=== PATIENT | male | born 1960 | race Two or more races ===

== ENCOUNTER 2024-06-13 20:37 | Inpatient (IN) | payer OTHER ==
[~2024-06-13] VITALS: Ht 180.3 cm; Wt 87.5 kg
[2024-06-13] MEDS ORDERED: CEFTRIAXONE SODIUM 1,000 MG VIAL IV ONE (20:45)
[2024-06-13] MEDS ORDERED: LevETIRAcetam 500 MG/5 ML VIAL IV ONE (20:45)
[2024-06-13] MEDS ORDERED: LORazepam 2 MG/ML VIAL IV PUSH ONE (20:45)
[2024-06-13] MEDS ORDERED: PROPOFOL 10,000 MCG/ML VIAL IV PUSH ONE (20:45)
[2024-06-13] MEDS ORDERED: DIPHENHYDRAMINE HCL 50 MG/ML VIAL 1ML IV ONE (20:45)
[2024-06-13 21:14] LABS: HEMATOCRIT 40.7 % (39.0-48.0); HEMOGLOBIN 13.7 g/dL (13-16.00); MEAN CELL VOLUME 97.6 fL (80.0-100.00); MEAN CORPUSCULAR HEMOGLOBIN 32.9 pg (27.00-32.0); MEAN CORPUSCULAR HGB CONC 33.7 g/dl (32.0-36.0); PLATELET COUNT 166 K/uL (150-450); RED BLOOD COUNT 4.18 M/uL (4.00-6.00); RED CELL DISTRIBUTION WIDTH 14.6 % (11.5-14.5)
[2024-06-13 21:16] LABS: ERYTHROCYTE SEDIMENTATION RATE 22 mm/hr
[2024-06-13 21:32] LABS: INR 1.01; PARTIAL THROMBOPLASTIN TIME 29.3 SECONDS (22.0-34.0)
[2024-06-13 21:39] LABS: ALBUMIN 3.7 gm/dL (3.4-5.0); ALKALINE PHOSPHATASE 109 U/L (50-136); ALT/SGPT 55 U/L (12-78); AMYLASE 77 U/L (25-115); ANION GAP 12 (10.0-20.0); AST/SGOT 47 U/L (15-37); BILIRUBIN TOTAL 0.29 mg/dL (0.3-1.2); BILIRUBIN,CONJUGATED 0.11 mg/dL (0.0-0.2); BILIRUBIN,UNCONJUGATED 0.18 mg/dL (0.0-0.6); BLOOD UREA NITROGEN 13 mg/dL (7-18); BUN CREA RATIO 12 (7.0-25.0); CALCIUM 8.6 mg/dL (8.5-10.1); CARBON DIOXIDE 26 mEq/L (21-32); CHLORIDE 107 mmol/L (98-107); CREATININE SERUM 1.13 mg/dL (0.70-1.30); GFR 63.43; GLOBULINA 3.9 G/DL (2.4-3.5); LDH 207 U/L (87-241); LIPASE 30 U/L (13-75); PHOSPHOKINASE CREATININE 141 U/L (39-308); SODIUM 141 mmol/L (136-145); TOTAL PROTEIN 7.6 gm/dL (6.4-8.2)
[2024-06-13 21:49] LABS: C-REACTIVE PROTEIN < 0.29 MG/DL (0.00-0.29); GLUCOSE FASTING 201 mg/dL (65-100); OSMOLALITY SERUM 287 MOSM/KG (275-295)
--- NOTE | 2024-06-13 22:09 | NUR ---
0820PM: SE RECIBE PTE EN AMBULANCIA EL CUAL SE OBSERVA LETARGICO CON MOVIMIENTOS INVOLUNTARIOS Y GASPIN EN COMPANIA DE PARAMEDICOS LOS CUALES REFIEREN QUE EL MISMO ESTUVO CONVULSANDO. SE PASA A CAMA #3 DE CRITICO ER Y SE CONECTA A MONITOR CARDIACO Y OXIMETRIA DE PULSO. PACIENTE CANALIZACON EN BRAZO ALLISON #18 POR DONDE BAJA .9 NSS POR PARAMEDICOS. 0823PM: DR HASSAN ES NOTIFICADO Y SE COMIENZA PROCESO DE INTUVACION EL MISMO REFIERE COLOCAR ATIVAN 2 MG IVPUSH, SE COLOCA EL MISMO POR VENA. PERSONAL DE TERAPIA RESPIRATORIA HACE PRESENCIA EN EL AREA Y EJECUTA SUCION Y PROCESO DE RESUCITACION MANUAL SE OBSERVA PACIENTE CON SATURACION 92% MAS CON RESPIRACIONES ABDOMINALES. DRA REHMAN HACE PRESENCIA EN EL AREA Y SE LLAMA A PERSONAL DE ANESTECIA. 0828PM: SE INTENTA EL PROCESO DE INTUBACION POR DR HASSAN PTE SE TORNA RESISTENTE Y COMIENZA A HACER FUERZA EN EL PROCESO. DR HASSAN REFIERE PROPOFOL. 0830PM: SE COLOCA PROPOFOL 1ML IVPUSH [facility]. 0831PM: DR REHMAN INTUBA PTE CON TUBO VICKI 7, SE VALIDA QUE TUBO WHITLEY EN POSICION SE COLOCA VENTILADOR MECANICO CON PARAMETROS EN AC 500, PEEP 5, 02 100% , RATE 14. 0846PM: SE COLECTAN MUESTRAS DE CHARLIE Y SE ENVIAN DE FORMA INMEDIATA A LAB. SE ADMINISTRAN MEDICAMENTOS [place] [facility]ICA Y SE DENIS PTE EN CAMA CON RESTRICCIONES X4, VITALES ESTABLES AL MOMENTO. PERSONAL DE PLACAS REALIZA LA MISMA. QUEDA PENDIENTE CT POR ORDEN MEDICA. 0856: SE COLOCA PURVIS A PACIENTE Y SE LIZETH PERTENENCIAS DEL MISMO EN GABETA A LADO DE LA CAMA, SE REALIZA DOCUMENTO DESGLOSADO DE PERTENENCIAS Y SE DENIS EN RECORD. SE DENIS PTE BAJO TX EN CAMA.
[2024-06-13 22:35] LABS: ABG PH 7.351 (7.35-7.45); ABG PO2 404.7 mmHg (80-100)
[2024-06-13 22:36] LABS: ABG pCO2 49.2 mmHg (35-45); BASE EXCESS 0.3 mmol/l; BICARBONATE 26.6 mmol/l (23-25); Tco2 28.1 mmol/l; allen test SATISFACTORY; o2 100 %; puncture site RADIAL LEFT
--- NOTE | 2024-06-13 23:12 | NUR ---
2312 SE RECIBE PTE ALERTA Y ORIENTADO X3 EN CAMA #3 UNIDAD DE CRITICO CON BARANDAS ELEVADAS Y FRENOS POR SEGURIDAD. SE OBSERVA PTE CONECTADO A MONITOR CARDIACO Y OXIMETRIA DE PULSO CONTINUA PRESENTANDO LOS SIGUIENTES SIGNOS VITALES: BP-83/64 (71), HR-88, T-97.5, RR-18, SPO2-100%. SE OBSERVA TAMBIEN PTE ASISTIDO POR VENTILADOR MECANICO CON INTUBACION #7 FIJADA EN NUMERACION #24 EN COMISURA LABIAL DERECHA; BAJO LOS SIGUIENTES PARAMETROS: VT ML-550, FO2%-50%, MODE A/C, PEEP-5, RR-14/MIN, LOS CUALES PTE TOLERA. PTE CANALIZADO EN AMBOS BRAZOS CON ANGIOS #18, LOS CUALES ESTAN PATENTES, LIBRES DE EDEMA Y ERITEMA, RECIBIENDO KEPPRA 1,000MG/250ML A 125MLS/HR. SE OBSERVA TAMBIEN RESTRICCIONES X4 BAJO ORDEN MEDICA YA QUE PTE SE ENCUENTRA EN ESTADO COMBATIVO, COBY DE RESTRICCION SIN ENROJECIMIENTO, LACERACIONES U OTROS HALLAZGOS ANORMALES, ABDOMEN BLANDO Y DEPRESIBLE AL TACTO, CON PURVIS CATHETER BAJANDO A GRAVEDAD CON EGRESO URINARIO COLOR AMARILLO JACKI Y SIN SEDIMENTO, EXTREMIDADES INFERIORES RESTRINGIDAS Y SIN PRESENTAR ENROJECIMIENTO, EDEMA Y OTROS SIGNOS. SE MANTIENE BAJO OBSERVACION POR CAMBIOS SIGNIFICATIVOS. PENDIENTE CT SCAN DE ANTOINE Y PECHO.
[2024-06-13] MEDS ORDERED: NOREPINEPHRINE BITARTRATE 8 MG in DEXTROSE 5 % IN WATER 250 ML IV SCH (23:30)
[2024-06-13] MEDS ORDERED: LevETIRAcetam 500 MG/5 ML VIAL IV SCH (23:40)
[2024-06-14] VITALS (16 sets, daily range): BP systolic 95–106; BP diastolic 71–84; O2SAT 97–100
--- NOTE | 2024-06-14 00:05 | NUR ---
SE TRANSPORTA PTE A CT SCAN PARA REALIZARSE LOS MISMOS.
[2024-06-14] MEDS ORDERED: LORazepam 2 MG/ML VIAL IV STA (00:37)
[2024-06-14] MEDS ORDERED: CEFTRIAXONE SODIUM 1,000 MG VIAL IV ONE (02:45)
[2024-06-14] MEDS ORDERED: MIDAZOLAM HCL 100 MG in 0.9 % SODIUM CHLORIDE 100 ML IV SCH (02:45)
[2024-06-14] MEDS ORDERED: MIDAZOLAM HCL 50 MG in 0.9 % SODIUM CHLORIDE 50 ML IV SCH (02:45)
[2024-06-14 06:09] LABS: ABG PH 7.275 (7.35-7.45); ABG PO2 157.7 mmHg (80-100); ABG pCO2 55.5 mmHg (35-45); BASE EXCESS -2.6 mmol/l; BICARBONATE 25.2 mmol/l (23-25); SaO2 99.1 %; Tco2 26.9 mmol/l; allen test SATISFACTORY; o2 50 %; puncture site RADIAL RIGHT
--- NOTE | 2024-06-14 07:37 | NUR ---
SE RECIBE PTE ALERTA Y ORIENTADO X3 EN CAMA BAJA Y BARANDAS ELEVADAS POR HARLEY SEGURIDAD EN UNIDAD DE ICU-2. PTE SE OBSERVA RECIBIENDO ASISTENCIAS RESPIRATORIA POR VENTILADOR MECANICO CON PARAMETROS VTML(550), FO2(50), MODO(AC), PEEP CMH20(5), RR(14/MIN), PTE ENTUBADO. SE OBSERVAN EXTREMIDADES SUPERIOIRES LIBRES DE EDEMA Y ERITEMA CON H/L EN AMBOS BRAZOS POR LOS CUALES ESTA RECIBIENDO DRIP DE VERSED @ 8ML/HR Y DRIP DE LEVOPHED @ 32ML/HR. PTE CONECTADO A MONITOR CARDIACO Y OXYMETRIA DE PULSO CON VITALES ESTABLES [place] CONDICION PERMITE. EL ABDOMEN SE OBSERVA RETRAIBLE AL TACTO CON PERISTALSIS PRESENTE. SE OBSERVA SONDA URINARIA CON ORINA RECOLECTADA AMARILLO INTENSO. LAS EXTREMIDADES INFERIOIRES SE OBSERVAN LIBRES DE EDEMA Y ERITEMA.
[2024-06-14] MEDS ORDERED: AZITHROMYCIN 500 MG in DEXTROSE 5 % IN WATER 250 ML IV SCH (09:00)
[2024-06-14] MEDS ORDERED: CEFTRIAXONE SODIUM 2,000 MG VIAL IV SCH (09:00)
[2024-06-14] MEDS ORDERED: RINGERS SOLUTION,LACTATED 1,000 ML IV STA (09:10)
[2024-06-14] MEDS ORDERED: PANTOPRAZOLE SODIUM 40 MG/VIAL VIAL IV SCH (09:11)
[2024-06-14] MEDS ORDERED: ENOXAPARIN SODIUM 40 MG/0.4 ML SYRINGE SUBCUTANEO SCH (09:11)
[2024-06-14] MEDS ORDERED: RINGERS SOLUTION,LACTATED 1,000 ML IV SCH (09:15)
[2024-06-14 10:31] LABS: URINE APPEARANCE Clear; URINE BILIRRUBIN Negative (NEGATIVE); URINE BLOOD Negative; URINE COLOR Yellow; URINE GLUCOSE Negative (NEGATIVE); URINE KETONE Negative (NEGATIVE); URINE LEUKOCYTE Negative; URINE NITRATE Negative; URINE PROTEIN Trace (NEGATIVE); URINE UROBILINOGEN 0.2 E.U./dl
[2024-06-14 10:35] LABS: URINE BACTERIA 62.9 uL (0.0-1933); URINE CAST 4.12 uL (0.0-1.40); URINE EPITHELIAL CELLS 8.1 uL (0.0-38.8); URINE RBC 15.4 uL (0.0-20.8); URINE WBC 9.5 uL (0.0-23.2)
[2024-06-14 11:33] LABS: HEMATOCRIT 39.1 % (39.0-48.0); MEAN CELL VOLUME 97.2 fL (80.0-100.00); MEAN CORPUSCULAR HEMOGLOBIN 32.4 pg (27.00-32.0); MEAN CORPUSCULAR HGB CONC 33.3 g/dl (32.0-36.0); RED BLOOD COUNT 4.02 M/uL (4.00-6.00); RED CELL DISTRIBUTION WIDTH 13.9 % (11.5-14.5)
[2024-06-14 11:49] LABS: ALBUMIN 3.2 gm/dL (3.4-5.0); BILIRUBIN TOTAL 0.94 mg/dL (0.3-1.2); CALCIUM 8.2 mg/dL (8.5-10.1); CREATININE SERUM 0.94 mg/dL (0.70-1.30); GFR 78.45; GLOBULINA 3.5 G/DL (2.4-3.5); MAGNESIUM 1.7 mg/dL (1.8-2.4); PHOSPHOROUS 2.2 mg/dL (2.5-4.9); POTASSIUM 4.06 mEq/L (3.5-5.1); TOTAL PROTEIN 6.7 gm/dL (6.4-8.2)
[2024-06-14 11:57] LABS: C-REACTIVE PROTEIN 2.02 MG/DL (0.00-0.29); PLATELET COUNT 91 K/uL (150-450)
[2024-06-14] MEDS ORDERED: MAGNESIUM SULFATE IN WATER 50 ML IV NR (12:30)
[2024-06-14] MEDS ORDERED: POTASSIUM PHOS,M-BASIC-D-BASIC 15 MM in 0.9 % SODIUM CHLORIDE 250 ML IV NR (12:30)
[2024-06-14 21:07] LABS: CHOL HDL RATIO 2.5 (0-5.0)
[2024-06-15] VITALS (17 sets, daily range): BP systolic 85–114; BP diastolic 4–77; O2SAT 98–100
[2024-06-15 07:55] LABS: HEMATOCRIT 40.1 % (39.0-48.0); HEMOGLOBIN 13.9 g/dL (13-16.00); MEAN CELL VOLUME 94.7 fL (80.0-100.00); MEAN CORPUSCULAR HEMOGLOBIN 32.8 pg (27.00-32.0); MEAN CORPUSCULAR HGB CONC 34.6 g/dl (32.0-36.0); PLATELET COUNT 141 K/uL (150-450); RED BLOOD COUNT 4.23 M/uL (4.00-6.00); RED CELL DISTRIBUTION WIDTH 14.2 % (11.5-14.5)
[2024-06-15 08:23] LABS: ALBUMIN 2.9 gm/dL (3.4-5.0); BILIRUBIN TOTAL 0.93 mg/dL (0.3-1.2); CALCIUM 8.1 mg/dL (8.5-10.1); CREATININE SERUM 0.76 mg/dL (0.70-1.30); GFR 100.26; GLOBULINA 3.1 G/DL (2.4-3.5); MAGNESIUM 2.1 mg/dL (1.8-2.4); PHOSPHOROUS 2.2 mg/dL (2.5-4.9); POTASSIUM 4.15 mEq/L (3.5-5.1)
[2024-06-15] MEDS ORDERED: POTASSIUM PHOS,M-BASIC-D-BASIC 15 MM in 0.9 % SODIUM CHLORIDE 250 ML IV NR (09:30)
[2024-06-15 10:05] LABS: ABG PH 7.452 (7.35-7.45); ABG PO2 297.1 mmHg (80-100); ABG pCO2 42.6 mmHg (35-45); BASE EXCESS 4.6 mmol/l; BICARBONATE 29.1 mmol/l (23-25); SaO2 99.9 %; Tco2 30.4 mmol/l
[2024-06-15 10:06] LABS: allen test SATISFACTORY; o2 50 %; puncture site RADIAL RIGHT
[2024-06-15 14:00] LABS: ABG PH 7.454 (7.35-7.45); ABG PO2 169.1 mmHg (80-100); ABG pCO2 39.8 mmHg (35-45); BASE EXCESS 3.2 mmol/l; BICARBONATE 27.3 mmol/l (23-25); SaO2 99.6 %; Tco2 28.5 mmol/l
[2024-06-15 14:01] LABS: allen test SATISFACTORY; o2 50 %; puncture site RADIAL LEFT
[2024-06-15] MEDS ORDERED: AA 4.25%/CAL/LYTES/DEXT 5% 1,000 ML PERIFERAL SCH (17:00)
[2024-06-15] MEDS ORDERED: HYDROCORTISONE SODIUM SUCC/PF 100 MG VIAL IV SCH (19:44)
[2024-06-16] VITALS (16 sets, daily range): BP systolic 78–112; BP diastolic 61–87; O2SAT 96–100
[2024-06-16 06:40] LABS: HEMATOCRIT 35.3 % (39.0-48.0); HEMOGLOBIN 12.4 g/dL (13-16.00); MEAN CELL VOLUME 95.1 fL (80.0-100.00); MEAN CORPUSCULAR HEMOGLOBIN 33.3 pg (27.00-32.0); MEAN CORPUSCULAR HGB CONC 35.1 g/dl (32.0-36.0); RED BLOOD COUNT 3.71 M/uL (4.00-6.00); RED CELL DISTRIBUTION WIDTH 14.1 % (11.5-14.5)
[2024-06-16 06:47] LABS: PLATELET COUNT 81 K/uL (150-450)
[2024-06-16 06:48] LABS: PLT IN CITRATE 75 K/uL (150-450)
[2024-06-16 07:10] LABS: INR 1.05; PARTIAL THROMBOPLASTIN TIME 31.8 SECONDS (22.0-34.0); PROTHROMBIN TIME 11.4 SECONDS (9.0-11.5)
[2024-06-16 07:17] LABS: ALBUMIN 2.5 gm/dL (3.4-5.0); BILIRUBIN TOTAL 0.8 mg/dL (0.3-1.2); BILIRUBIN,CONJUGATED 0.32 mg/dL (0.0-0.2); BILIRUBIN,UNCONJUGATED 0.48 mg/dL (0.0-0.6); CALCIUM 8.2 mg/dL (8.5-10.1); CREATININE SERUM 0.57 mg/dL (0.70-1.30); GFR 139.73; GLOBULINA 3.1 G/DL (2.4-3.5); MAGNESIUM 1.9 mg/dL (1.8-2.4); PHOSPHOROUS 2.2 mg/dL (2.5-4.9); POTASSIUM 4.08 mEq/L (3.5-5.1); TOTAL PROTEIN 5.6 gm/dL (6.4-8.2)
[2024-06-16 07:22] LABS: CHOL HDL RATIO 2.8 (0-5.0)
[2024-06-16 10:14] LABS: UREA CLEARANCE 130.3 ML/MIN
[2024-06-16] MEDS ORDERED: POTASSIUM PHOS,M-BASIC-D-BASIC 15 MM in 0.9 % SODIUM CHLORIDE 250 ML IV NR (11:15)
[2024-06-16] MEDS ORDERED: HYDROCORTISONE SODIUM SUCC/PF 100 MG VIAL IV SCH (13:00)
[2024-06-16] MEDS ORDERED: AA 4.25%/CAL/LYTES/DEXT 5% 1,000 ML PERIFERAL SCH (17:00)
[2024-06-16] MEDS ORDERED: LevETIRAcetam 5 MG/1 ML REDILUIDO IV SCH (21:00)
[2024-06-17] VITALS (13 sets, daily range): BP systolic 78–178; BP diastolic 59–86; O2SAT 95–100
[2024-06-17 06:13] LABS: HEMATOCRIT 36.9 % (39.0-48.0); HEMOGLOBIN 12.6 g/dL (13-16.00); MEAN CELL VOLUME 96.2 fL (80.0-100.00); MEAN CORPUSCULAR HEMOGLOBIN 32.8 pg (27.00-32.0); MEAN CORPUSCULAR HGB CONC 34.1 g/dl (32.0-36.0); RED BLOOD COUNT 3.83 M/uL (4.00-6.00); RED CELL DISTRIBUTION WIDTH 13.7 % (11.5-14.5)
[2024-06-17 07:03] LABS: PLATELET COUNT 92 K/uL (150-450)
[2024-06-17 07:20] LABS: ALBUMIN 2.4 gm/dL (3.4-5.0); BILIRUBIN TOTAL 0.35 mg/dL (0.3-1.2); CALCIUM 8.3 mg/dL (8.5-10.1); CREATININE SERUM 0.68 mg/dL (0.70-1.30); GFR 117.03; GLOBULINA 3.9 G/DL (2.4-3.5); MAGNESIUM 1.9 mg/dL (1.8-2.4); PHOSPHOROUS 3.1 mg/dL (2.5-4.9); POTASSIUM 4.18 mEq/L (3.5-5.1); TOTAL PROTEIN 6.3 gm/dL (6.4-8.2)
[2024-06-17] MEDS ORDERED: AZITHROMYCIN 500 MG VIAL IV SCH (09:00)
[2024-06-17] MEDS ORDERED: RINGERS SOLUTION,LACTATED 1,000 ML IV STA (11:00)
[2024-06-17] MEDS ORDERED: DIVALPROEX SODIUM 500 MG TABLET.DR PO SCH (17:00)
[2024-06-17] MEDS ORDERED: DIVALPROEX SODIUM 250 MG TABLET.DR PO SCH (17:00)
[2024-06-18] VITALS (13 sets, daily range): BP systolic 84–124; BP diastolic 63–90; O2SAT 96–100
[2024-06-18 06:29] LABS: HEMATOCRIT 38.3 % (39.0-48.0); HEMOGLOBIN 13.4 g/dL (13-16.00); MEAN CORPUSCULAR HEMOGLOBIN 33.3 pg (27.00-32.0); RED BLOOD COUNT 4.03 M/uL (4.00-6.00); RED CELL DISTRIBUTION WIDTH 14.2 % (11.5-14.5)
[2024-06-18 06:35] LABS: PLATELET COUNT 85 K/uL (150-450)
[2024-06-18 06:55] LABS: ALBUMIN 2.4 gm/dL (3.4-5.0); BILIRUBIN TOTAL 0.45 mg/dL (0.3-1.2); CALCIUM 8.3 mg/dL (8.5-10.1); CREATININE SERUM 0.61 mg/dL (0.70-1.30); GFR 132.66; GLOBULINA 3.3 G/DL (2.4-3.5); MAGNESIUM 1.8 mg/dL (1.8-2.4); POTASSIUM 4.47 mEq/L (3.5-5.1); TOTAL PROTEIN 5.7 gm/dL (6.4-8.2)
[2024-06-18] MEDS ORDERED: DIVALPROEX SODIUM 500 MG TABLET.DR PO SCH (09:00)
[2024-06-18] MEDS ORDERED: RINGERS SOLUTION,LACTATED 500 ML IV STA (11:31)
[2024-06-19] VITALS (8 sets, daily range): BP systolic 109–120; BP diastolic 75–87; O2SAT 90–98
[2024-06-19] MEDS ORDERED: DIVALPROEX SOD500 MG PO (15:38)
[2024-06-19] MEDS ORDERED: KEPPRA1000 MG PO (15:38)
== END 2024-06-19 19:06 | disposition home or self-care (01) | DRG 208 ==
LOC: ER 20:37 → ICU-2 06-14 10:38 → EDBD 06-14 10:38 → SEC-K 06-18 14:07 → MEDJ 06-18 14:09
PROVIDERS: General Practice; ADMIT Internal Medicine; ATTEND Internal Medicine
PROC: BW28ZZZ Computerized Tomography (CT Scan) of Head (ICD-10-PCS; 2024-06-13)
PROC: BB24ZZZ Computerized Tomography (CT Scan) of Bilateral Lungs (ICD-10-PCS; 2024-06-13)
PROC: 5A1945Z Respiratory Ventilation, 24-96 Consecutive Hours (ICD-10-PCS; principal; 2024-06-14)
PROC: 02HV33Z Insertion of Infusion Device into Superior Vena Cava, Percutaneous Approach (ICD-10-PCS; 2024-06-14)
PROC: B030Y0Z Magnetic Resonance Imaging (MRI) of Brain using Other Contrast, Unenhanced and Enhanced (ICD-10-PCS; 2024-06-15)
PROC: 4A12X4Z Monitoring of Cardiac Electrical Activity, External Approach (ICD-10-PCS; 2024-06-18)
DX: J69.0 Pneumonitis due to inhalation of food and vomit (principal); J96.00 Acute respiratory failure, unspecified whether with hypoxia or hypercapnia; G40.911 Epilepsy, unspecified, intractable, with status epilepticus; Z99.11 Dependence on respirator [ventilator] status; I95.89 Other hypotension; J18.9 Pneumonia, unspecified organism
CPT/HCPCS: 70552

== ENCOUNTER 2025-01-17 18:55 | Inpatient (IN) | payer OTHER ==
[~2025-01-17] VITALS: Ht 215.9 cm; Wt 59.0 kg
[~2025-01-17 18:55] MED LIST: DIVALPROEX SOD500 MG PO; KEPPRA1000 MG PO
--- NOTE | 2025-01-17 19:15 | NUR ---
PTE ALERTA Y ORIENTADO X3 REFIERE VENIR A JAI POR AMBULANCIA DEBIDO A QUE MCKEON ESTADO 3 GALLEGOS SIN GRETCHEN KEPPRA Y MCKEON ESTADO CONVULSANDO EN EL CAPRI DE HOY. SE MIDEN S/V Y SE UBICA.
[2025-01-17] MEDS ORDERED: THIAMINE HCL 100 MG/ML 2 ML VIAL IV ONE (19:30)
[2025-01-17] MEDS ORDERED: LORazepam 2 MG/ML VIAL IV ONE (19:30)
[2025-01-17] MEDS ORDERED: FAMOTIDINE/PF 20 MG/2 ML VIAL IV ONE (19:30)
[2025-01-17] MEDS ORDERED: MULTIVIT INFUSN,ADULT 4,VIT K 10 ML VIAL IV ONE (19:30)
[2025-01-17] MEDS ORDERED: FOLIC ACID 5 MG/ML VIAL IV ONE (19:30)
[2025-01-17 20:09] LABS: BASO % 0.4 % (0.1-1.2); EOS # 0.02 (0.04-0.54); EOS % 0.2 % (0.7-7.0); LYMPH # 3.53 (1.18-3.74); LYMPH % 27.8 % (19.3-53.1); MEAN PLATELET VOLUME 9.90 fl (9.4-12.4); MONO # 0.95 (0.24-0.82); MONO % 7.5 % (4.7-12.5); NEUT # 8.07 (1.56-6.13); NEUT % 63.4 % (34.0-71.1); RED CELL DISTRIBUTION WIDTH 14.7 % (11.6-14.4)
--- NOTE | 2025-01-17 20:26 | NUR ---
SE RECIBE PACIENTE MASCULINO ALERTA Y ORIENTADO X3, SE COLOCA EN EL AREA DE CRITICO EN LA CAMA #3 CON BARANDAS ELEVADAS. SE CONECTA A MONITOR CARDIACO, OXIMETRIA DE PULSO Y CANULA NASAL A 3LT/MIN. VENOPUNCION EN BARZO ALLISON POR PERSONAL DE EMEGENCIAS MEDICAS CANALIZADO CON ANGIO #20 Y SE LE COLOCA H/L Y SEGUNDA VENOPUNCION EN BRAZO ALLISON Y SE UTILIZA ANGIO #20 Y SE LE COLOCA H/L, AMBOS PATENTES LIBRES DE EDEMA Y ENROJECIMIENTO. SE LE EMA LAS MUETRAS Y SE LE ADMINISTRAN LOS MEDICAMENTOS [place] LA ORDEN MEDICA. SE LE REALIZA EKG EL CUAL SE LE PRESENTA A LA . SE OSBERVA PACIENTE POR CAMBIOS.
[2025-01-17 20:28] LABS: INR 1.07
[2025-01-17 20:33] LABS: COVID-19 AG NEGATIVE (NEGATIVE)
[2025-01-17 20:35] LABS: ALT/SGPT 33.0 U/L (12-78); AST/SGOT 28.0 U/L (15-37); BILIRUBIN TOTAL 0.64 mg/dL (0.3-1.2); BUN CREA RATIO 12.0 (7.0-25.0); CREATININE SERUM 1.38 mg/dL (0.70-1.30); GFR 51.55; GLOBULINA 4.5 G/DL (2.4-3.5); GLUCOSE FASTING 115.0 mg/dL (65-100); OSMOLALITY SERUM 291.0 MOSM/KG (275-295); PHOSPHOKINASE CREATININE 154.0 U/L (39-308)
--- NOTE | 2025-01-17 23:25 | NUR ---
SE RECIBE PACIENTE MASCULINO SOMNOLIENTO EN CAMA CON BARANDAS ELEVADAS POR SEGURIDAD, CONECTADO A MONITOR CARDIACO PRESENTANDO PULSO EN 82/MIN CON RITMO SINUSAL Y A OXIMETRIA DE PULSO PRESENTANDO BUEN PATRON RESPIRATORIO. RECIBIENDO IV'S 0.9NSS CON MVT BAJANDO A 150ML/HR POR VENOPUNCION EN BRAZO LA CUAL SE ENCUENTRA PEGGY DE EDEMA Y ERITEMA. SE OBSERVA H/L EN MANO IZQUIERDA, PEGGY DE EDEMA Y ERITEMA. PENDIENTE CT DE ANTOINE Y MUESTRA DE U/A. SE MIDEN SIGNOS VITALES Y SE REPORTAN. SE MANTIENE EN OBSERVACION POR CAMBIOS EN CONDICION MEDICA.
--- NOTE | 2025-01-18 | NUR ---
SE TRASLADA PACIENTE A ESTUDIO (CT DE ANTOINE), PACIENTE TOLERA. SE ASISTE EN DORA NECESIDADES BASICAS Y SE PROVEE COMODIDAD Y DESCANSO. SE MANTIENE EN OBSERVACION POR CAMBIOS EN CONDICION MEDICA.
--- NOTE | 2025-01-18 01:40 | NUR ---
SE ORIENTA A PACIENTE SOBRE TX MEDICO ORDENADO, REFIERE ENTENDER. SE ADMINISTRA MEDICAMENTO [place] ORDEN MEDICA. SE MANTIENE EN OBSERVACION POR CAMBIOS.
[2025-01-18 02:03] LABS: URINE APPEARANCE Clear; URINE BILIRRUBIN Negative (NEGATIVE); URINE BLOOD Negative; URINE COLOR Yellow; URINE GLUCOSE Negative (NEGATIVE); URINE KETONE 15 (NEGATIVE); URINE LEUKOCYTE Negative; URINE NITRATE Negative; URINE PROTEIN Negative (NEGATIVE); URINE UROBILINOGEN 1.0 E.U./dl
[2025-01-18 02:06] LABS: URINE BACTERIA 64.8 uL (0.0-1933); URINE EPITHELIAL CELLS 2.2 uL (0.0-38.8); URINE RBC 2.9 uL (0.0-20.8)
[2025-01-18 02:40] LABS: TYPE CELLS SQUAMOUS; URINE CAST 0.14 uL (0.0-1.40); URINE WBC 1.4 uL (0.0-23.2)
--- NOTE | 2025-01-18 04:00 | NUR ---
PACIENTE EN DESCANSO SIN CAMBIOS EN CONDICION MEDICA. SE MANTIENE EN OBSERVACION POR CAMBIOS.
--- NOTE | 2025-01-18 06:24 | NUR ---
PENDIENTE CONSULTA CON MEDICINA INTERNA.
--- NOTE | 2025-01-18 07:34 | NUR ---
SE RECIBE PTE MASCULINO DE 64 YRS ALERTA CONCIENTE Y TRANAUILO EN LA UIDAD DE CRITICO DE LA JAI DE EMERGENCIA EN CAMA CON BARANDAS ELEVADA CONECTADO A MONITOR CARDIACO Y OXIMENTRIA DE PULSO. PTE SE OBSERVA BAJANDO EN MANO IZQUIERDA .9NSS A 1000 A 100 ML HRS PEGGY DE EDEMA Y PANTENTE ,NO SE OBSERVA EL AREA SHAYNE NI EDEMEATOSA . SE LE CHON S/V Y SE DOUMENTA LA CUYAL SE MANTIENE ESTABLE , PTE DESCANSANDO Y PEGGY DE DOLOR. SE MANTIENE CONSULTADO CON MEDICINA INTERNA LA CUAL SE MANTIENE EN ESPERA DE MEDICO. SE MANTIENE BAJ O OBSERVACION POR CAMBIOS EN HARLEY CONDICION.
[2025-01-18] MEDS ORDERED: RINGERS SOLUTION,LACTATED 1,000 ML IV STA (10:13)
[2025-01-18] MEDS ORDERED: DIVALPROEX SODIUM 500 MG TABLET.DR PO SCH (10:41)
[2025-01-18] MEDS ORDERED: PANTOPRAZOLE SODIUM 40 MG TABLET.DR PO SCH (12:56)
[2025-01-18] MEDS ORDERED: ENOXAPARIN SODIUM 40 MG/0.4 ML SYRINGE SUBCUTANEO SCH (12:57)
[2025-01-18] MEDS ORDERED: RINGERS SOLUTION,LACTATED 1,000 ML IV SCH (13:00)
[2025-01-18 13:52] VITALS: BP 100/70
[2025-01-18 15:00] VITALS: BP 105/70; O2SAT 96
[2025-01-18 16:00] VITALS: BP 107/78; BP 110/81; O2SAT 100; O2SAT 95
[2025-01-18 16:54] LABS: ABG PH 7.456 (7.35-7.45); ABG PO2 140.8 mmHg (80-100); BICARBONATE 25.8 mmol/l (23-25)
[2025-01-18 16:55] LABS: o2 28 %
[2025-01-18 17:00] VITALS: BP 113/79; BP 115/82; O2SAT 97
[2025-01-18 18:00] VITALS: BP 121/79; O2SAT 97
[2025-01-18 20:00] VITALS: BP 100/50; O2SAT 95
[2025-01-19 01:50] VITALS: BP 112/74; O2SAT 96
[2025-01-19 06:41] LABS: BASO % 0.3 % (0.1-1.2); EOS # 0.08 (0.04-0.54); EOS % 1.3 % (0.7-7.0); LYMPH # 2.12 (1.18-3.74); LYMPH % 35.5 % (19.3-53.1); MEAN PLATELET VOLUME 10.40 fl (9.4-12.4); MONO # 0.53 (0.24-0.82); MONO % 8.9 % (4.7-12.5); NEUT # 3.22 (1.56-6.13); NEUT % 53.8 % (34.0-71.1); RED CELL DISTRIBUTION WIDTH 14.1 % (11.6-14.4)
[2025-01-19 06:44] LABS: ALT/SGPT 28.0 U/L (12-78); AST/SGOT 45.0 U/L (15-37); BILIRUBIN TOTAL 1.14 mg/dL (0.3-1.2); BUN CREA RATIO 15.0 (7.0-25.0); CREATININE SERUM 0.78 mg/dL (0.70-1.30); GFR 99.58; GLOBULINA 3.4 G/DL (2.4-3.5); GLUCOSE FASTING 91.0 mg/dL (65-100); OSMOLALITY SERUM 286.0 MOSM/KG (275-295)
[2025-01-19 07:06] LABS: ERYTHROCYTE SEDIMENTATION RATE 12 mm/hr (0-20)
[2025-01-19 10:02] VITALS: BP 100/60; O2SAT 98
[2025-01-19 18:13] VITALS: BP 129/83
[2025-01-20 00:39] VITALS: BP 128/72; O2SAT 97
[2025-01-20 09:02] VITALS: BP 116/80; O2SAT 97
[2025-01-20] MEDS ORDERED: KEPPRA1000 MG PO (11:04)
[2025-01-20] MEDS ORDERED: DIVALPROEX SOD500 MG PO (11:04)
[2025-01-20 18:01] VITALS: BP 126/75; O2SAT 97
== END 2025-01-20 19:32 | disposition home or self-care (01) | DRG 65 ==
LOC: ER 18:55 → MEDJ 01-18 13:09
PROVIDERS: Emergency Medicine; ADMIT Internal Medicine; ATTEND Internal Medicine
PROC: BW28ZZZ Computerized Tomography (CT Scan) of Head (ICD-10-PCS; principal; 2025-01-17)
DX: I63.89 Other cerebral infarction (principal); G40.801 Other epilepsy, not intractable, with status epilepticus; N17.9 Acute kidney failure, unspecified; D69.6 Thrombocytopenia, unspecified

== ENCOUNTER 2025-06-19 01:22 | Emergency (ER) | payer OTHER ==
[~2025-06-19] VITALS: Ht 152.4 cm; Wt 54.4 kg
[2025-06-19 03:18] LABS: BASO % 0.7 % (0.1-1.2); EOS # 0.06 (0.04-0.54); EOS % 1.0 % (0.7-7.0); LYMPH # 1.20 (1.18-3.74); LYMPH % 20.0 % (19.3-53.1); MEAN PLATELET VOLUME 9.60 fl (9.4-12.4); MONO # 0.42 (0.24-0.82); MONO % 7.0 % (4.7-12.5); NEUT # 4.25 (1.56-6.13); NEUT % 71.0 % (34.0-71.1); RED CELL DISTRIBUTION WIDTH 13.3 % (11.6-14.4)
[2025-06-19 03:52] LABS: ALT/SGPT 23.0 U/L (12-78); AST/SGOT 19.0 U/L (15-37); BILIRUBIN TOTAL 0.38 mg/dL (0.3-1.2); BUN CREA RATIO 18.0 (7.0-25.0); CREATININE SERUM 1.08 mg/dL (0.70-1.30); GFR 68.41; GLOBULINA 4.0 G/DL (2.4-3.5); GLUCOSE FASTING 117.0 mg/dL (65-100); OSMOLALITY SERUM 286.0 MOSM/KG (275-295)
[2025-06-19 06:54] LABS: URINE APPEARANCE Clear; URINE BILIRRUBIN Negative (NEGATIVE); URINE BLOOD Negative; URINE COLOR Yellow; URINE GLUCOSE Negative (NEGATIVE); URINE KETONE Negative (NEGATIVE); URINE LEUKOCYTE Trace; URINE NITRATE Negative; URINE PROTEIN Trace (NEGATIVE); URINE UROBILINOGEN 1.0 E.U./dl
[2025-06-19 06:56] LABS: URINE BACTERIA 15.6 uL (0.0-1933); URINE EPITHELIAL CELLS 3.3 uL (0.0-38.8); URINE RBC 7.3 uL (0.0-20.8); URINE WBC 2.7 uL (0.0-23.2)
[2025-06-19 06:58] LABS: URINE CAST 0.73 uL (0.0-1.40)
== END 2025-06-19 20:36 | disposition home or self-care (01) ==
LOC: ER 01:22
PROVIDERS: General Practice
DX: G40.802 Other epilepsy, not intractable, without status epilepticus (principal)